=== PATIENT | female | born 1955 | race American Indian/Alaskan Native ===

== ENCOUNTER 2020-11-09 10:19 | Day surgery (SDC) | payer BC, OTHER ==
[~2020-11-09] VITALS: Ht 154.9 cm; Wt 111.0 kg
--- NOTE | ~2020-11-09 | OR ---
[facility] [address], [place] [address] Draft DATE OF OPERATION: 11/09/2020 SURGEON: Pilo Moreno MD PREOPERATIVE DIAGNOSES: Chronic frontal sinusitis, chronic ethmoiditis, chronic sphenoiditis, chronic maxillary sinusitis, deviated nasal septum, Sluder syndrome, chronic sinus headaches, nasal obstruction. POSTOPERATIVE DIAGNOSES: Chronic frontal sinusitis, chronic ethmoiditis, chronic sphenoiditis, chronic maxillary sinusitis, deviated nasal septum, Sluder syndrome, chronic sinus headaches, nasal obstruction. PROCEDURES: 1. Bilateral endoscopic frontal ethmoidectomy 74882-35. 2. Nasal septoplasty, 60725. 3. Bilateral endoscopic sphenoidotomies, 14723-54. 4. Bilateral endoscopic maxillary antrostomy, 94949-22. INDICATIONS: This 65-year-old female has had a lifelong history of severe headaches. These brought her to the emergency room and to doctor's offices for many years. Her sinuses have never been evaluated as a source of pain. In the evaluation of her sinuses, exam and CT scan showed a sharp spur stabbing her in the inferior turbinates on the right side of the septal deviation, crowding of the ostiomeatal unit with lateralization of the middle turbinate on the right side, congestion in the ostiomeatal units. The patient had inflammatory tissue noted in the ethmoid/the anterior ethmoids with a tight configuration of the frontal sinuses or the units where ethmoids into the nasofrontal duct. The patient had pain referable to all of the usual sinus pain patterns and because medical failure to treat it and the good possibility of surgery to relieve her suffering, the above procedures were indicated. DESCRIPTION OF PROCEDURE: The patient was placed in supine position, had an orotracheal intubation was placed under general anesthesia. Photographs were taken endoscopically preop, intraop, and postoperatively. A total of 5 mL 1% lidocaine with 1:200,000 epinephrine were utilized during this procedure and 2 mL of 0.5% Marcaine with 1:200,000 epinephrine, all of the Marcaine being put into the septum. The uncinate process and the anterior portion of the middle turbinate were injected with a lidocaine about 2.5 mL, and then the PATIENT NAME: DENNIS OTTO OPERATIVE REPORT DATE OF : 59 REPORT #: [id number] PHYSICIAN: PILO MORENO MD PCP: HEAVENLY MURPHY MD REPORT IS CONFIDENTIAL AND NOT TO BE RELEASED WITHOUT AUTHORIZATION [facility] [address], [place] [address] Draft anterior-inferior portion of the middle turbinate was trimmed away with the Kerrison forceps, Henok-Cut, ethmoid punch, and a microdebrider. A sickle knife was used to incise the uncinate process mucosa, then slipping the Henok-Cut ethmoid punch into that incision. The left uncinate process removed posteriorly than anteriorly with backbiting forceps. There was an accessory ostium present on the left side consistent with recurring or distant history of acute sinusitis. The intervening bone was and removed between that accessory ostium and the natural ostium. A curette was used to open up the ethmoid bulla, then going from air cell to air cell right back through the lamina of the middle turbinate and the posterior ethmoids was done all the while using the microdebrider to remove ragged mucosa and a little thin shards of bone. A trans-ethmoid sphenoidotomy was open made into the sphenoid sinus. The sphenoid sinus and the roof of the ethmoids were particularly low over the base of skull. This was noted preoperatively with the CT scan and dissection performed accordingly. Changing to a 70-degree scope, the base of skull was dissected out and then going up into the frontal recess, the ethmoid architecture was removed. The true frontal sinus had its ostium of course medially; however, most of the pneumatization of the frontal sinus was made up in the forehead was lateral from what have been a supraorbital ethmoid air cell. The sagittal bone was between that and the frontal sinus; however, a clear-cut wide diameter or separation was not possible and this needs to be looked in the postop visits with the scope to make sure it does not scar. The frontal sinus Kerrison forceps was not possible to insert it into either of the frontal sinuses due to the dense bone and relatively small or narrow pneumatization up into the forehead, this could be a problem postop. The nasal pore was placed into the ethmoid labyrinth to help prevent lateralization of middle turbinates with some mupirocin ointment. The septum was then repaired. Anteriorly, the septum was straight, posteriorly was deviated with a large spur, so was done endoscopically. After putting some more lidocaine into there as well as Marcaine to do hydrodissection of the mucosa. A 15 blade was used to incise the mucosa, caudal dissection tool used to lift up the mucoperichondrium and periosteum. Then the angulated chisel was used to cut that spur with Leslie forceps used to remove bone and cartilage until it was flushed and straight and removed with the flaps returned to their anatomic position. The dissection then went on the right side much as the same as it did on the left. Another 2 mL of lidocaine injected into the anterior-inferior portion of the middle turbinates and the uncinate process. The uncinate process was completely removed with backbiting forceps and a Henok-Cut ethmoid punch. The anterior-inferior portion, middle turbinate trimmed away, so there was good space up into the middle meatus and the sinuses. Complete ethmoidectomy was then performed. A trans-ethmoid sphenoidotomy performed also staying very low basically at the same level as the maxillary ostium. Once the ceiling to the sphenoid sinus could be visualized, the rostrum was removed accordingly with Kerrison forceps and changing to a 70-degree scope, the dissection was completed. The right frontal sinus was basically entirely lateral or supraorbital ethmoid air cell, which had made into the forehead, but with pneumatization. The neck opening was very small. Again, the frontal sinus PATIENT NAME: DENNIS OTTO [facility] OPERATIVE REPORT DATE OF : 59 REPORT #: [id number] PHYSICIAN: PILO MORENO MD PCP: HEAVENLY MURPHY MD REPORT IS CONFIDENTIAL AND NOT TO BE RELEASED WITHOUT AUTHORIZATION [address] [address] Draft Kerrison forceps, which could not be insinuated and used to remove any more of the beak. Care was taken not to avulse mucosa, so that it would not produce postop scarring and the narrowness of the architecture. More nasal pore was placed on that side with mupirocin ointment. The patient was awakened, sent to the recovery room in good condition. No complications. Estimated blood loss was 300 mL. Pilo Moreno MD [facility] /[id number] Copies: ~ PATIENT NAME: DENNIS OTTO XIN OPERATIVE REPORT DATE OF : 59 REPORT #: [id number] PHYSICIAN: PILO MORENO MD PCP: HEAVENLY MURPHY MD REPORT IS CONFIDENTIAL AND NOT TO BE RELEASED WITHOUT AUTHORIZATION
--- NOTE | 2020-11-09 07:01 | NUR ---
AFRIN SPRAY COMPLETED PRE-OP X2 TEN MINUTES APART.
--- NOTE | 2020-11-09 09:50 | NUR ---
11/09/20 0950 Yeni Dillon 0941- PT TO PACU IN SUPINE POSITION. EYES CLOSED DOES NOT RESPOND TO VERBAL OR TACTILE STIMULI. BREATHING EASY AND UNLABORED. SPO2 >95% ON 6 L O2 VIA SIMPLE MASK. PT REPOSITIONED IN THE BED. HOB ELEVATED. VSS 0948- PT CONTINUES TO SLEEP IN SF POSITION. RESPONDS TO VERBAL AND TACTILE STIMULI BUT CONTINUES TO SLEEP. BREATHING EASY AND UNLABORED. VSS. SPO2 >95% ON 6 L O2 VIA SIMPLE MASK.
[~2020-11-09 10:19] MED LIST: FENOGLIDE40 MG; FIORICET 50-301 EACH PO; JANUMET 50-5001 EACH PO; LIPITOR10 MG PO; PERCOCET 5-3251 EACH PO; ZOFRAN ODT4 MG PO
--- NOTE | 2020-11-09 10:23 | NUR ---
PATIENT TRANSFERED BACK TO DAYSURGERY BAY 6 FROM PACU. BEDSIDE REPORT FROM LUIS MANUEL RAMOS. EZIOET REPORTS NO PAIN OR NAUSEA. PATIENT UP TO BSC, APPEARS UNSTEADY ON FEE. 2 PERSON ASSIST. PATIENT BACK TO BED, APPEARS DROWSY, AWAKE ON AND OFF. VOIDED WELL. NO OTHER NEEDS AT THIS TIME. CALL LIGHT WITHIN REACH. WATER AND SNACKS AT BEDSIDE. CALL TO DAUGHTER HAILEY NOTIFYING PATIENT BACK TO DAYSURGERY.
--- NOTE | 2020-11-09 11:05 | NUR ---
PATIENT CALL TO GET UP TO BSC, THIS TIME PATIENT STEADY ON FEET AND ABLE TO SELF TRANSFER. PROVIDED STOOLL FOR PATIENT TO STEP ON TO GET ON BSC AND STRETCHER. PATIENT REPORTS NO PAIN, VSS. GAUZE TO NOSE HAS SMALL AMOUNT OF DRAINAGE. PATIENT EATING SALTINE CRACKERS AND VERNON POPSICLE. PATIENT'S DAUGHTER REQUESTED TO SPEAK WITH DR. MORENO. NOTIFIED THEM THAT THE DOCTOR WAS IN SURGERY AT THIS TIME. THEY VERBALIZED THEY DID NOT WANT TO WAIT TO TALK TO HIM, PROVIDED PATIENT WITH PICTURES. CALLED CLINIC TO SET PATIENT UP WITH NASAL RINSES, NURSE VERBALIZED WOULD HAVE BOTTLE READY FOR PATIENT TO TAX TECHNICIAN FROM CLINIC. PLACED GAUZE AND TAPE IN BAG FOR PATIENT TO BE ABLE TO CHANGE DRESSING NEEDED AT HOME.
== END 2020-11-09 11:50 | disposition home or self-care (01) ==
LOC: OPS 10:19 → DS 10:20 → OPS 11:50
PROVIDERS: ATTEND Otolaryngology
PROC: 09BM8ZZ Excision of Nasal Septum, Via Natural or Artificial Opening Endoscopic (ICD-10-PCS; 2020-11-09)
PROC: 09TV8ZZ Resection of Left Ethmoid Sinus, Via Natural or Artificial Opening Endoscopic (ICD-10-PCS; principal; 2020-11-09 06:45)
PROC: 09TU8ZZ Resection of Right Ethmoid Sinus, Via Natural or Artificial Opening Endoscopic (ICD-10-PCS; 2020-11-09 06:45)
DX: J32.8 Other chronic sinusitis (principal); J34.2 Deviated nasal septum; J34.89 Other specified disorders of nose and nasal sinuses; G44.89 Other headache syndrome; E66.9 Obesity, unspecified; I10 Essential (primary) hypertension; E11.9 Type 2 diabetes mellitus without complications; K21.9 Gastro-esophageal reflux disease without esophagitis; Z79.84 Long term (current) use of oral hypoglycemic drugs; Z87.891 Personal history of nicotine dependence; Z68.43 Body mass index [BMI] 50.0-59.9, adult; Z88.5 Allergy status to narcotic agent; Z88.8 Allergy status to other drugs, medicaments and biological substances
CPT/HCPCS: 00160; J0330; J1100; J2001; J2250; J2405; J2704; J7121

== ENCOUNTER 2021-06-27 07:00 | Day surgery (SDC) | payer BC, OTHER ==
[~2021-06-27] VITALS: Ht 154.9 cm; Wt 110.0 kg
[~2021-06-27 07:00] MED LIST changes: +ATIVAN0.5 MG PO; +CALCIUM 600 +1 EA14 PO; +CLOTRIMAZOLE45 G1 TP; +CRESTOR10 MG PO; +FENOFIBRATE145 MG PO; +FOLIC ACID1 MG PO; +GLIPIZIDE ER10 MG PO; +HYDROCODON-ACE1 EA13 PO; +MAGNESIUM400 MG PO; +METOPROLOL TART25 MG PO; +PIOGLITAZONE HC30 MG PO; +VITAMIN D210 MCG PO; +VITAMIN D250 MCG PO; +ZOFRAN4 MG PO
--- NOTE | 2021-06-27 10:44 | NUR ---
06/27/21 1044 Lexie,Domenica 1032 PT ARRIVED TO PACU ON 6L, ORAL AIRWAY IN PLACE. VSS. 1033 PT WOKE AND ORAL AIRWAY REMOVED, PT EASILY FALLS BACK TO SLEEP AFTER BEING REORIENTED TO PACU. ICE PLACED ON ABD.
--- NOTE | 2021-06-27 12:04 | NUR ---
1110: PATIENT BACK IN DAY SURGERY ROOM FROM PACU. RATES PAIN /10. DECLINES PAIN MEDICATION AT THIS TIME. HEAT PACK TO RIGHT SHOULDER. ICE APCK TO ABDOMEN. ABDOMINAL DRESSINGS X 4 CLEAN, DRY AND INTACT. SCDs ON. IV SITE WNL. ICE WATER PLACED AT BEDSIDE. PATIENT GIVEN ICE CUBES PER REQUEST. VS CHECKED. AT BEDSIDE. CALL LIGHT WITHIN REACH. 1145: CHECKED PATIENT. PATIENT SLEEPING. AT BEDSIDE. CALL LIGHT WITHIN REACH.
[2021-06-27] MEDS ORDERED: HYDROMORPHONE HC4 MG PO (13:56)
--- NOTE | 2021-06-27 14:13 | OR ---
[facility] [address], [place] [address] Signed DATE OF OPERATION: 06/27/2021 SURGEON: Nikita Piper MD PREOPERATIVE DIAGNOSES: 1. Acute on chronic cholecystitis and cholelithiasis. 2. Sister with history of gallbladder cancer in her 50s. POSTOPERATIVE DIAGNOSES: 1. Acute on chronic cholecystitis and cholelithiasis. 2. Sister with history of gallbladder cancer in her 50s. 3. Severe cholesterolosis. PROCEDURE: Laparoscopic cholecystectomy without intraoperative cholangiogram. ESTIMATED BLOOD LOSS: None. FINDINGS: The intraoperative cholangiogram was unremarkable. The gallbladder wall had severe cholesterolosis. She had one dominant 10 mm stone. She also had several tiny 2 mm yellow cholesterol stones. INDICATIONS: Dennis is a 66-year-old obese diabetic female, who was having trouble with right upper quadrant abdominal pain radiating through to her back. She also has some pain in the left upper quadrant. She had been to her primary care provider for evaluation. A CT scan revealed her gallstones. She said the pain has been fairly constant. She had been asked to see me expeditiously in the office. She did remind me that her sister was diagnosed and of gallbladder cancer in her 50s. In the office, I had given her a booklet on the gallbladder. We had discussed the location and function of the gallbladder. We discussed laparoscopic versus open cholecystectomy. She understands the expected intraop and postop course. There is risk to the surgery including, but not limited to bleeding, infection, scarring, change in contour of the skin, damage to bowel, damage to main bile duct, incisional hernias and other unforeseen comorbidities. She had expressed understanding and wished to proceed. PROCEDURE NOTE: I met with Dennis and her in our preop area. After answering the questions, Electronically Signed By: NIKITA PIPER MD 06/27/21 1413 PATIENT NAME: DENNIS OTTO OPERATIVE REPORT DATE OF : 59 REPORT #: [id number] PHYSICIAN: NIKITA PIPER MD PCP: TATIANA YEUNG MD REPORT IS CONFIDENTIAL AND NOT TO BE RELEASED WITHOUT AUTHORIZATION [facility] [address], [place] [address] Signed she was taken in the operating room. She was placed in a supine position under general endotracheal tube anesthesia. She was given preoperative antibiotics along with subcutaneous heparin. SCDs were utilized. She was prepped and draped in the usual sterile fashion. All trocars were placed in usual positions under direct visualization of the camera without difficulty. Pictures were taken throughout for photodocumentation. The gallbladder was grasped and elevated in the right upper quadrant. The triangle of Calot was dissected carefully until the cystic duct was evident. We did have an additional nurse scrub and hold the gallbladder up given Dennis's body mass index. The intraoperative cholangiocatheter was inserted into the cystic duct. The intraoperative cholangiogram was performed and found to be unremarkable. The cystic duct stump was secured with a PDS Endoloop and 2 clips were placed across the cystic duct stump to imani its location. We placed several clips across the cystic artery and it was divided. The gallbladder was slowly and carefully removed from the gallbladder fossa with the help of the cautery. The gallbladder was placed into an EndoCatch bag. The right upper quadrant was irrigated and suctioned out until clear. We used our laparoscopic suturing device to pass 0-Vicryl suture on either side of the fascia of the subxiphoid trocar site. This was tied down to close this fascia primarily. After this, all the gas was allowed to escape and all the trocars were removed along with the gallbladder. The gallbladder was opened on the back table by a circulating nurse for photodocumentation. She had a single 10 mm stone in the gallbladder. She also had several small 2 mm yellow cholesterol stones as well. She also had very significant cholesterolosis. The fascia of the supraumbilical trocar site was then closed with interrupted [id number] 0-Vicryl sutures. Local anesthetic was injected into all trocar sites. Each trocar site was irrigated and suctioned out until clear. The skin and dermis of each trocar site were closed with interrupted 3-0 subcuticular Monocryl sutures. Dry gauze and tape were applied to all incisions. Gaby was awakened from her anesthesia, extubated in the OR, and taken to recovery room in stable condition. Nikita Piper MD ALB/MODL /[id number] cc: Tatiana Yeung MD Electronically Signed By: NIKITA PIPER MD 06/27/21 1413 PATIENT NAME: DENNIS OTTO [facility] OPERATIVE REPORT DATE OF : 59 REPORT #: [id number] PHYSICIAN: NIKITA PIPER MD PCP: TATIANA YEUNG MD REPORT IS CONFIDENTIAL AND NOT TO BE RELEASED WITHOUT AUTHORIZATION [facility] [address] [place] [place] [address] Signed Nikita Piper MD Copies: TATIANA YEUNG MD, ANDREW L MD ~ Electronically Signed By: NIKITA PIPER MD 06/27/21 1413 PATIENT NAME: DENNIS OTTO XIN OPERATIVE REPORT DATE OF : 59 REPORT #: [id number] PHYSICIAN: NIKITA PIPER MD PCP: TATIANA YEUNG MD REPORT IS CONFIDENTIAL AND NOT TO BE RELEASED WITHOUT AUTHORIZATION
--- NOTE | 2021-06-27 14:38 | NUR ---
1230: PATIENT ASSISTED OOB AND TO BATHROOM. GAIT STEADY. VOID WITHOUT DIFFICULTY. GAIT STEADY BACK TO ROOM. PATIENT GIVEN DIET SODA AND SALTINE CRACKERS. THEN MEDICATED FOR PAIN WITH 1 TAB OF HYDROMORPHONE. AT BEDSIDE. CALL LIGHT WITHIN REACH. 1330: PATIENT ASSISTED OOB AND TO BATHROOM. GAIT STEADY. 1415: DISCHARGE INSTRUCTIONS GIVEN TO PATIENT AND . IV DC'D WNL. TIP INTACT DRESSING APPLIED. 1425: PATIENT DISCHARGED TO HOME WITH VIA WHEELCHAIR.
--- NOTE | 2021-06-28 11:28 | PATH ---
[facility] [address] [facility] [place], [place] [address] Signed SPECIMEN(S): A GALLBLADDER SPECIMEN SOURCE: A. GALLBLADDER CLINICAL HISTORY: Calculus of gallbladder. Laparoscopic cholecystectomy. FINAL PATHOLOGIC DIAGNOSIS: Gallbladder, cholecystectomy: - Chronic cholecystitis with cholesterolosis and adenomyomatous change. - Cholelithiasis. NAL:cml:C2NR MICROSCOPIC EXAMINATION: Histologic sections of all submitted blocks are examined by light microscopy. These findings, together with the gross examination, support the pathologic diagnosis. GROSS DESCRIPTION: The specimen, labeled "MM, gallbladder," is received in formalin and consists of Specimen: Previously opened gallbladder. Dimensions: 7.5 cm in length and 4.5 cm in inner circumference. Serosa: Violaceous and smooth. Cystic Duct: Unobstructed. Calculi: One green gallstone within the container that measures 1.5 cm in greatest dimension. Mucosa: [place]-red, velvety, yellow flecking. Wall thickness: 0.5 cm. Lymph node: No pericystic lymph nodes are grossly identified. Additional: None. Fork Repairer sections are submitted in cassette (A1). JS (under the direct supervision of a pathologist) The Gross Description was prepared using a voice recognition system. The report was reviewed for accuracy; however, sound-alike word errors, addition and/or deletions may occur. If there is any question about this report, please contact Client Services. PERFORMING LABORATORY: The technical component was performed by [facility], Floridalma Mixon, PATIENT NAME: AGUSTO IVORYDENNIS LAUREN PATHOLOGY DATE OF : 59 REPORT #: [id number] PHYSICIAN: ARYAN CHENG PCP: TATIANA YEUNG MD REPORT IS CONFIDENTIAL AND NOT TO BE RELEASED WITHOUT AUTHORIZATION [facility] [address], [place] [address] [place] [address] (Diet Attendant: Jenna Camargo MD; CLIA# [id number]). [facility], [address] [address] (CLIA# [id number]). Diagnostician: Henny Villafuerte MD Pathologist Electronically Signed 06/28/2021 Copies: ~ PATIENT NAME: DENNIS OTTO PATHOLOGY DATE OF : 59 REPORT #: [id number] PHYSICIAN: ARYAN CHENG PCP: TATIANA YEUNG MD REPORT IS CONFIDENTIAL AND NOT TO BE RELEASED WITHOUT AUTHORIZATION
== END 2021-06-27 14:25 | disposition home or self-care (01) ==
LOC: DS 07:00
PROVIDERS: ATTEND Colon & Rectal Surgery
PROC: BF03YZZ Plain Radiography of Gallbladder and Bile Ducts using Other Contrast (ICD-10-PCS; 2021-06-27)
PROC: 0FT44ZZ Resection of Gallbladder, Percutaneous Endoscopic Approach (ICD-10-PCS; principal; 2021-06-27 08:00)
DX: K80.12 Calculus of gallbladder with acute and chronic cholecystitis without obstruction (principal); E66.9 Obesity, unspecified; E11.22 Type 2 diabetes mellitus with diabetic chronic kidney disease; N18.9 Chronic kidney disease, unspecified; E78.2 Mixed hyperlipidemia; Z79.84 Long term (current) use of oral hypoglycemic drugs; Z88.5 Allergy status to narcotic agent; Z88.6 Allergy status to analgesic agent
CPT/HCPCS: 00790; 74300; J0131; J0330; J0690; J1100; J1644; J1885; J2001; J2405; J2704; J3010; J7121; Q9967